=== PATIENT | male | born 1970 | race Two or more races ===

== ENCOUNTER 2021-08-16 19:33 | Emergency (ER) | payer SELFPAY ==
[~2021-08-16] VITALS: Ht 177.8 cm; Wt 75.0 kg
[2021-08-16] MEDS ORDERED: SODIUM CHLORIDE 0.9% 1,000 ML IV ONE (20:30)
[2021-08-16 21:00] LABS: BASOPHILS % 0.3 % (0.0-2.0); EOSINOPHILS % 0.6 % (0.0-5.0); HEMATOCRIT. 46.8 % (42.0-52.0); LYMPHOCYTES % 12.7 % (20.0-50.0); MEAN CORPUSCULAR HEMOGLOBIN 31.3 pg (28.0-32.0); MEAN CORPUSCULAR VOLUME 91.4 fL (80.0-94.0); MEAN PLATELET VOLUME 7.9 fl (7.4-10.4); MONOCYTES % 5.9 % (2.0-8.0); NEUTROPHILS % 80.5 % (40.0-76.0); PLATELET 355 x1000/uL (130-400); RED BLOOD CELL COUNT 5.12 mill/uL (4.7-6.1); RED CELL DISTRIBUTION WIDTH 13.2 % (11.6-14.6)
[2021-08-16 21:11] LABS: CHLORIDE 108 mEq/L (98-107)
[2021-08-16 21:14] LABS: *AMPHETAMINES SCREEN URINE NEGATIVE (NEGATIVE)
[2021-08-16 21:15] LABS: *BARBITURATES SCREEN URINE NEGATIVE (NEGATIVE); *BENZODIAZEPINES SCREEN URINE NEGATIVE (NEGATIVE); *COCAINE SCREEN URINE PRESUMTIVE POSITIVE (NEGATIVE); CANNABINOID URINE SCREEN PRESUMTIVE POSITIVE (NEGATIVE); METHADONE URINE SCREEN NEGATIVE (NEGATIVE); OPIATES URINE SCREEN NEGATIVE (NEGATIVE); PHENCYCLIDINE URINE SCREEN PRESUMTIVE POSITIVE (NEGATIVE)
[2021-08-16 21:16] LABS: ETHANOL BLOOD < 10 mg/dL
[2021-08-16 23:24] VITALS: BP 123/83
== END 2021-08-16 23:26 | disposition home or self-care (01) ==
LOC: EDBD 19:33 → ER 19:33
DX: F19.10 Other psychoactive substance abuse, uncomplicated (principal); F14.129 Cocaine abuse with intoxication, unspecified; R42 Dizziness and giddiness
CPT/HCPCS: 36415; 80053; 80305; 80320; 84484; 85025; 93005; 96360; 99284; J7030; G0480

== ENCOUNTER 2022-06-17 17:55 | Emergency (ER) | payer SELFPAY ==
[~2022-06-17] VITALS: Ht 167.6 cm; Wt 79.0 kg
[2022-06-17] MEDS ORDERED: AMOXICILLIN/POTASSIUM CLAVULANATE 875/125MG TAB PO ONE (18:30)
[2022-06-17] MEDS ORDERED: LIDOCAINE HCL/EPINEPHRINE 1%-EPI 1:100,000 20 ML VIAL INFIL ONE (18:30)
[2022-06-17] MEDS ORDERED: TETANUS, DIPHTHERIA, PERTUSSIS VAC/PF 0.5ML (>10YR OLD) IM ONE (18:30)
[2022-06-17] MEDS ORDERED: AMOX1TAB16 PO (19:22)
[2022-06-17] MEDS ORDERED: T3 PO (19:22)
[2022-06-17 19:48] VITALS: BP 117/97
== END 2022-06-17 19:52 | disposition home or self-care (01) ==
LOC: ER 17:55
DX: S51.822A Laceration with foreign body of left forearm, initial encounter (principal); W54.0XXA Bitten by dog, initial encounter; Y93.89 Activity, other specified; Y92.89 Other specified places as the place of occurrence of the external cause; Y99.8 Other external cause status
CPT/HCPCS: 12002; 90471; 90715; 99283; J3490

== ENCOUNTER 2022-06-20 12:15 | Emergency (ER) | payer SELFPAY ==
[~2022-06-20] VITALS: Ht 162.6 cm; Wt 70.0 kg
[~2022-06-20 12:15] MED LIST: AMOX1TAB16 PO; T3 PO
[2022-06-20 12:20] VITALS: BP 112/81
== END 2022-06-20 16:35 | disposition left against medical advice (07) ==
LOC: ER 12:15
DX: Z53.21 Procedure and treatment not carried out due to patient leaving prior to being seen by health care provider (principal)

== ENCOUNTER 2022-07-08 13:49 | Emergency (ER) | payer SELFPAY ==
[~2022-07-08] VITALS: Ht 162.6 cm; Wt 77.0 kg
[2022-07-08 13:53] VITALS: BP 133/88
== END 2022-07-08 18:18 | disposition left against medical advice (07) ==
LOC: ER 13:49
DX: Z53.21 Procedure and treatment not carried out due to patient leaving prior to being seen by health care provider (principal)

== ENCOUNTER 2023-05-29 20:36 | Emergency (ER) | payer MEDICAID ==
[~2023-05-29] VITALS: Ht 162.6 cm; Wt 72.6 kg
[2023-05-29 20:55] VITALS: BP 131/72; PULSE 96; RESP 16; TEMP 98.4; O2SAT 99
[2023-05-30] MEDS ORDERED: ONDANSETRON 4MG ODT PO STA (01:21)
[2023-05-30 01:33] LABS: BASOPHILS % 0.4 % (0.0-2.0); EOSINOPHILS % 3.5 % (0.0-5.0); HEMOGLOBIN. 14.6 g/dL (14.0-18.0); LYMPHOCYTES % 33.5 % (20.0-50.0); MEAN CORPUSCULAR HEMOGLOBIN 31.7 pg (28.0-32.0); MEAN CORPUSCULAR HGB CONC 33.1 g/dL (31.0-37.0); MEAN CORPUSCULAR VOLUME 95.8 fL (80.0-94.0); MEAN PLATELET VOLUME 7.8 fl (7.4-10.4); MONOCYTES % 8.9 % (2.0-8.0); NEUTROPHILS % 53.7 % (40.0-76.0); PLATELET 381 x1000/uL (130-400); RED BLOOD CELL COUNT 4.59 mill/uL (4.7-6.1); RED CELL DISTRIBUTION WIDTH 12.9 % (11.6-14.6); WHITE BLOOD COUNT 6.5 x1000/uL (4.5-11.0)
[2023-05-30 01:47] LABS: ALANINE AMINOTRANSFERASE 12 IU/L (10-49); ASPARTATE AMINOTRANSFERASE 14 IU/L (<34); BILIRUBIN TOTAL 0.6 mg/dL (0.1-1.0); CALCIUM 8.9 mg/dL (8.7-10.4); CARBON DIOXIDE 24 mEq/L (21-32); CHLORIDE 107 mEq/L (98-107); CREATININE 0.8 mg/dL (0.6-1.3); GLUCOSE 91 mg/dL (70-105); POTASSIUM 4.2 mEq/L (3.5-5.1); PROTEIN TOTAL 7.1 g/dL (6.0-8.3); SODIUM 139 mEq/L (136-145); UREA NITROGEN BLOOD 10 mg/dL (9-23)
[2023-05-30] MEDS ORDERED: ONDA4TAB11 PO (02:53)
== END 2023-05-30 02:50 | disposition left against medical advice (07) ==
LOC: ER 20:36
DX: R11.2 Nausea with vomiting, unspecified (principal)
CPT/HCPCS: 99283; 80053; 83690; 85025; 36415; Q0162